=== PATIENT | female | born 1935 | race Caucasian/White ===

== ENCOUNTER 2020-04-12 10:52 | Inpatient (IN) ==
[2020-04-12] MEDS ORDERED: SODIUM CHLORIDE 0.9% 500 ML IV ONE (11:18)
[2020-04-12 11:43] LABS: Hematocrit (blood only) 37.2 % (37-47); Hemoglobin 12.2 g/dL (12.0-16.0); Immature Granulocytes # (auto) 0.06 K/uL (0.00-0.02); Immature Granulocytes % (auto) 0.7 %; Lymphocytes # (auto) 0.69 K/uL (1.2-3.4); Lymphocytes % (auto) 8.2 %; Mean Corpuscular Hgb Conc 32.8 g/dL (32-36); Mean Corpuscular Volume 91.4 fL (80-100); Mean Platelet Volume 13.5 fL (7.4-10.4); Monocytes # (auto) 0.61 K/uL (0.11-0.59); Monocytes % (auto) 7.3 %; Neutrophils # (auto) 7.02 K/uL (1.4-6.5); Neutrophils % (auto) 83.8 %; Platelet Count 165 K/uL (130-400); RDW Coefficient of Variation 13.3 % (11.5-14.5); RDW Standard Deviation 43.8 fL (36.4-46.3); Red Blood Count 4.07 M/uL (4.2-5.4); White Blood Count 8.38 K/uL (4.8-10.8)
[2020-04-12 12:00] LABS: INR 1.1 (0.9-1.1); Partial Thromboplastin Time 27.1 Seconds (21.0-31.0); Prothrombin Time 11.8 Seconds (9.0-12.0)
[2020-04-12 12:10] LABS: Albumin Level 3.2 gm/dl (3.4-5.0); BUN Creatinine Ratio 37.4 (10-20); Bilirubin Direct 0.2 mg/dl (0-0.2); Calcium 12.1 mg/dl (8.5-10.1); Creatinine Clr Calc Pharmacy 13.5 ml/min; Est GFR (African American) 23.4; Est GFR (Non-African American) 20.2; Magnesium 2.7 mg/dl (1.8-2.4); Potassium 3.4 mmol/L (3.5-5.1)
[2020-04-12 12:13] LABS: Albumin Globulin Ratio 0.7 (0.9-2); Bilirubin,Total 0.7 mg/dl (0.2-1); Globulin 4.3 gm/dl (2.5-4.0); Phosphorus 1.7 mg/dl (2.5-4.9); Thyroid Stimulating Hormone 1.08 uIu/ml (0.300-4.500); Total Protein 7.5 gm/dl (6.4-8.2); Troponin I 0.286 ng/ml (0-0.045)
--- NOTE | 2020-04-12 12:33 | CT Scan Report ---
CT OF THE ABDOMEN AND PELVIS WITHOUT CONTRAST CLINICAL HISTORY: Abdominal pain. Constipation. COMPARISON STUDY: No previous studies for comparison. TECHNIQUE: Axial images of the abdomen and pelvis were obtained without IV contrast. Images were revi ewed in the axial, sagittal, and coronal planes. Automated exposure control was utilized for the chris dy. A dose lowering technique was utilized adhering to the principles of ALARA. FINDINGS: Visualized portions of the lower chest demonstrate moderate right lower lobe consolidation. This suggests pneumonia. No pneumatosis, free air or portal venous gas is present. 1.2 cm lateral se gment hepatic lesion likely reflects a cyst. Evaluation of the abdomen and pelvis is suboptimal on th is unenhanced exam. The spleen, adrenal glands, kidneys and pancreas are unremarkable with exception of a 2 mm nonobstructing right renal calculus and a 3 mm nonobstructing left renal calculus. There ar e no ureteral calculi. There is no hydronephrosis. There are are bilateral parapelvic cysts. No bilia ry or pancreatic ductal dilatation is present. The appendix is normal. There is no evidence for a bow el obstruction. Extensive colonic diverticulosis is noted without evidence for acute diverticulitis. Large amount of stool within the rectum is noted. No lymphadenopathy or ascites is present. Calcified uterine fibroids are noted. Grade I/II anterolisthesis of L5 on S1 due to L5 pars defects is noted. Old T11 compression fracture is present. IMPRESSION: 1. Large amount of stool within the rectum. No evidence for a bowel obstruction. 2. Moderate right lower lobe consolidation suggestive of pneumonia. 3. Small bilateral renal calculi. 4. Colonic diverticulosis without evidence for acute diverticulitis. ACT 112: Negative or not required by law. Electronically signed by: Markus Sanchez M.D. 04/12/2020 12:06 PM
--- NOTE | 2020-04-12 12:57 | Emergency Department Note ---
Impression & Plan Hypernatremia, Acute kidney injury superimposed on chronic kidney disease, Dementia, Hypercalcemia, Hypophosphatemia ED Provider Note NAME: YVES PATTEN AGE: 84 SEX: F ARRIVES VIA: Ambulance INFORMANT: Patient, ED PROVIDER(S): Yosi Leary MD CHIEF COMPLAINT: renal failure PLAN: Disposition: Admit MEDICAL DECISION MAKING: The patient is an 84-year-old woman with a past medical history of severe dementia who presents emergency department from her assisted living facility after recently arriving [facility] for evaluation of acute renal failure with creatinine of 2 on labs drawn yesterday which is up from recent of ultimately 1.0. And hypernatremia of 140. This was all performed in the setting of the patient complaining of abdominal pain with x-rays suspicious for severe constipation. On arrival the patient is severely demented minimally verbal but moving all extremities equally. She appears clinically dry. She d oes exhibit generalized discomfort/pain throughout her entire body including her abdomen. WBC, H/H and platelets within normal limits. Chemistry without acidosis. However creatinine is 2.15 and sodium 150 with BUN/creatinine> 30 consistent with prerenal etiology. Sodium of 150 represents approximately 1.7 L free water deficit. Calcium 12.1 Of note, the patient did exhibit several episodes of a narrow complex tachyarrhythmia up to the 190s but lasting briefly, 30 seconds,. Suspect this will improve as metabolic imbalance is addressed. Chest x-ray with question of right basilar density though could be atelectasis. CT abdomen pelvis negative for acute intra-abdominal process with evidence of severe constipation and fecal impaction. Right base is better clarified suggestive of possible infiltrate. UA pending. Will defer decision for antibiotics to admitting team. Blood cultures lactate and COVID-19 PCR ordered. Case was discussed with Juan Cifuentes PAC, with Dr. Oscar Martinez hospitalist who will evaluate the patient for admission. Triage Nursing notes reviewed and agree them. Additional history obtained from [facility] [address] records Prior medical records reviewed Vital Signs: reviewed and remarkable for tachycardia Differential diagnosis: Infection, dehydration, metabolic abnormality, hypo/hyperglycemia, electrolyte disturbance, anemia, hypoxia, cardiac sources, intracerebral event, toxicologic, neurologic, as well as other pathologies. ER treatment provided: See below. Diagnostics interpreted by me: ECG 1059: Sinus tachycardia, 109 bpm, no ectopy, left axis deviation, no overt ST elevation or depression, QTC 469, QRS 76. ECG 1127: Normal sinus rhythm, 93 bpm, no ectopy, left axis deviation, T wave inversion anteriorly. No overt ST elevation or depression, QTC 452, QRS 80. Cardiac Monitoring: An order for continuous cardiac monitoring was placed and de monstrated sinus tachycardia, 109 bpm, several episodes of narrow complex tachyarrhythmia up to 190s that are nonsustained. Laboratory studies: See below Imaging studies: XR chest 1V portable HISTORY: 84 years-old Female Chest Pain acute atypical chest pain COMPARISON: CT abdomen and pelvis of same day TECHNIQUE: Portable AP view of the chest FINDINGS: Cardiac silhouette is upper limits of normal in size. Calcified plaque of the thoracic aortic arch. No pneumothorax. Consolidative opacities of the right lung base. No large pleural effusion or overt pulmonary edema. Degenerative changes of the shoulders and spine. IMPRESSION: Asymmetric right lower lobe opacities are suggestive of pneumonia versus aspiration pneumonitis. CT OF THE ABDOMEN AND PELVIS WITHOUT CONTRAST CLINICAL HISTORY: Abdominal pain. Constipation. COMPARISON STUDY: No previous studies for comparison. TECHNIQUE: Axial images of the abdomen and pelvis were obtained without IV contrast. Images were reviewed in the axial, sagittal, and coronal planes. Automated exposure control was utilized for the study. A dose lowering technique was utilized adhering to the principles of ALARA. FINDINGS: Visualized portions of the lower chest demonstrate moderate right lower lobe consolidation. This suggests pneumonia. No pneumatosis, free air or portal venous gas is present. 1.2 cm lateral segment hepatic lesion likely reflects a cyst. Evaluation of the abdomen and pelvis is suboptimal on this unenhanced exam. The spleen, adrenal glands, kidneys and pancreas are unremarkable with exception of a 2 mm nonobstructing right renal calculus and a 3 mm nonobstructing left renal calculus. There are no ureteral calculi. There is no hydronephrosis. There are are bilateral parapelvic cysts. No biliary or pancreatic ductal dilatation is present. The appendix is normal. There is no evidence for a bowel obstruction. Extensive colonic diverticulosis is noted without evidence for acute diverticulitis. Large amount of stool within the rectum is noted. No lymphadenopathy or ascites is present. Calcified uterine fibroids are noted. Grade I/II anterolisthesis of L5 on S1 due to L5 pars defects is noted. Old T11 compression fracture is present. IMPRESSION: 1. Large amount of stool within the rectum. No evidence for a bowel obstruction. 2. Moderate right lower lobe consolidation suggestive of pneumonia. 3. Small bilateral renal calculi. 4. Colonic diverticulosis without evidence for acute diverticulitis. CT head/brain wo con CLINICAL HISTORY: 84 years-old Female with confusion. Acute confusion with altered mental status TECHNIQUE: Multiple axial CT images of the head were obtained without contrast. A dose lowering technique was utilized adhering to the principles of ALARA. CT DOSE: 729.78 mGycm COMPARISON: None. FINDINGS: No acute intracranial hemorrhage, midline shift, intracranial mass, hydrocephalus, territorial ischemia or abnormal extra-axial collection. Age- related involutional changes with ex vacuo ventriculomegaly. Patchy white matter hypodensities suggest chronic microvascular ischemic disease. Cerebral vascular calcifications. The calvarium is intact. Prior bilateral lens replacement. The paranasal sinuses, mastoid air cells, and middle ear cavities are clear. IMPRESSION: No acute intracranial abnormality. Consultation(s): Case was discussed with Juan Cifuentes PAC, with Dr. Oscar Martinez hospitalist who will evaluate the patient for admission. HPI: The patient is an 84-year-old woman with a past medical history of severe dementia who presents emergency department from her assisted living facility after recently arriving [facility] for evaluation of acute renal failure with creatinine of 2 on labs drawn yesterday which is up from recent of ultimately 1.0. And hypernatremia of 140. This was all performed in the setting of the patient complaining of abdominal pain with x-rays suspicious for severe constipation. ROS: See above HPI for pertinent positives & negatives. HPI is limited secondary to dementia. PAST MEDICAL HISTORY:See Below PAST SURGICAL HISTORY:See Below FAMILY HISTORY:See Below SOCIAL HISTORY:See Below HOME MEDICATIONS:See Below ALLERGIES:See Below VITALS:See Below PHYSICAL EXAMINATION: GENERAL: Awake to voice but minimally verbal, severely demented. Ill-appearing, in no distress HENT: Normocephalic, atraumatic. Oropharynx with dry mucous membranes and otherwise unremarkable. EYES: Normal conjunctiva. Sclera non-icteric. NECK: Supple. No nuchal rigidity. FROM. No JVD. RESPIRATORY: Clear to auscultation. CARDIAC: Tachycardic rate, normal rhythm. Extremities warm and well perfused. Pulses equal. ABDOMEN: Soft, non-distended. Generalized abdominal discomfort without discrete tenderness. No rebound or guarding. No masses. RECTAL: Deferred. MUSCULOSKELETAL: Chest examination reveals no tenderness. The back is symmetrical on inspection without obvious abnormality. There is no CVA tenderness to palpation. No joint edema. LOWER EXTREMITIES: Calves are equal size bilaterally and non-tender. No edema. No discoloration. NEURO: Normal sensorium. No focal sensory or motor deficits noted. Minimal verbal. Severe dementia. SKIN: No rash or jaundice noted. ED COURSE: Critical Care: I have personally spent greater than 65 minutes of critical care time in the direct management of this patient. This includes bedside care, interpretation of diagnostic studies, and testing, discussion with consultants, patient, and family members, and other required patient management activities. This 65 minutes is in excess of all separately billable procedures. Yosi Leray MD Past Med/Surg History Medical History Acquired hypothyroidism CKD (chronic kidney disease), stage III Dementia Primary hyperparathyroidism Surgical History H/O section S/P tonsillectomy Family History Other Heart disease Social History Smoking Status: Unknown if ever smoked Second Hand Exposure: No; Do You Dip or Chew Tobacco: No; Tobacco Cessation Education Requested by Patient: No Hx Alcohol Use: No Hx Substance Use: No Preferred Language: Mexican Communication Ability: hx alzheim Beliefs That Will Affect Care: None Current Living Situation: Assisted Other Information That Helps Us Care for You: No Feels Safe at Home: Yes Safety Concerns: Feels Safe At This Time Allergies Allergies Allergy/AdvReac Type Severity Reaction Status Date / Time No Known Allergies Allergy Unverified 04/12/20 11:54 Home Meds Home Medications Medication Instructions Recorded Confirmed amlodipine 5 mg PO HS 04/12/20 04/12/20 aspirin 81 mg PO QAM 04/12/20 04/12/20 cholecalciferol (vitamin D3) 25 mcg PO QAM 04/12/20 04/12/20 [Vitamin D3] levothyroxine 50 mcg PO DAILYBB 04/12/20 04/12/20 magnesium oxide 400 mg PO QAM 04/12/20 04/12/20 memantine 10 mg PO BID 04/12/20 04/12/20 metoprolol succinate 50 mg PO HS 04/12/20 04/12/20 polyethylene glycol 3350 [Miralax] 17 g PO QAM 04/12/20 04/12/20 sennosides-docusate sodium 2 tab-cap PO BID 04/12/20 04/12/20 [Senna-S] sertraline 50 mg PO QAM 04/12/20 04/12/20 Results & Data (ED) Vital Signs Vital Signs - 24 hr 04/12/20 11:00 04/12/20 11:01 04/12/20 11:06 Temperature 36.9 C Temperature Source Oral Pulse Rate 107 H 106 H 110 H Pulse Rate from SpO2 Sensor 107 H 106 H Respiratory Rate 25 H 24 20 Blood Pressure 153/76 H 145/97 H Blood Pressure Mean 93 113 Pulse Oximetry 92 93 93 Oxygen Delivery Method Room Air Oxygen Flow Rate Sepsis Recent Fever Within 48 Hours No Sepsis New/Unexplained Change in Mental Status No Sepsis Action Taken by Nursing No Action Required 04/12/20 11:20 04/12/20 11:30 04/12/20 11:31 Temperature Temperature Source Pulse Rate 95 H 94 H Pulse Rate from SpO2 Sensor 95 H 96 H Respiratory Rate 25 H 20 Blood Pressure 164/67 H Blood Pressure Mean 86 Pulse Oximetry 93 98 99 Oxygen Delivery Method Room Air Oxygen Flow Rate 3 3 Sepsis Recent Fever Within 48 Hours Sepsis New/Unexplained Change in Mental Status Sepsis Action Taken by Nursing 04/12/20 12:00 04/12/20 12:01 04/12/20 12:30 Temperature Temperature Source Pulse Rate 94 H 93 H 93 H Pulse Rate from SpO2 Sensor 94 H 93 H 92 H Respiratory Rate 23 21 19 Blood Pressure 142/63 H 157/97 H Blood Pressure Mean 75 114 Pulse Oximetry 95 94 95 Oxygen Delivery Method Oxygen Flow Rate 3 3 3 Sepsis Recent Fever Within 48 Hours Sepsis New/Unexplained Change in Mental Status Sepsis Action Taken by Nursing 04/12/20 12:31 04/12/20 12:44 04/12/20 13:00 Temperature Temperature Source Pulse Rate 92 H 109 H Pulse Rate from SpO2 Sensor 96 H 110 H Respiratory Rate 24 27 H Blood Pressure 160/81 H 150/101 H Blood Pressure Mean 100 108 Pulse Oximetry 95 97 Oxygen Delivery Method Nasal Cannula Nasal Cannula Oxygen Flow Rate 3 2 2 Sepsis Recent Fever Within 48 Hours Sepsis New/Unexplained Change in Mental Status Sepsis Action Taken by Nursing 04/12/20 13:01 Temperature Temperature Source Pulse Rate 94 H Pulse Rate from SpO2 Sensor 95 H Respiratory Rate 17 Blood Pressure Blood Pressure Mean Pulse Oximetry 96 Oxygen Delivery Method Nasal Cannula Oxygen Flow Rate 2 Sepsis Recent Fever Within 48 Hours Sepsis New/Unexplained Change in Mental Status Sepsis Action Taken by Nursing Laboratory Data Attestation: I reviewed the patient's lab results. Result diagrams: 04/12/20 10:28 04/12/20 10:28 Lab Results 04/12/20 04/12/20 04/12/20 Range/Units 10:24 10:24 10:28 WBC 8.38 (4.8-10.8) K/uL RBC 4.07 L (4.2-5.4) M/uL Hgb 12.2 (12.0-16.0) g/dL Hct 37.2 (37-47) % MCV 91.4 (80-100) fL MCH 30.0 (25-34) pg MCHC 32.8 (32-36) g/dL RDW Std Deviation 43.8 (36.4-46.3) fL RDW Coeff of Harshad 13.3 (11.5-14.5) % Plt Count 165 (130-400) K/uL MPV 13.5 H (7.4-10.4) fL Immature Gran % (Auto) 0.7 % Neut % (Auto) 83.8 % Lymph % (Auto) 8.2 % [place] % (Auto) 7.3 % Eos % (Auto) 0.0 % Baso % (Auto) 0.0 % Neut # (Auto) 7.02 H (1.4-6.5) K/uL Lymph # (Auto) 0.69 L (1.2-3.4) K/uL [place] # (Auto) 0.61 H (0.11-0.59) K/uL Eos # (Auto) 0.00 (0-0.5) K/uL Baso # (Auto) 0.00 (0-0.2) K/uL Immature Gran # (Auto) 0.06 H (0.00-0.02) K/uL PT (9.0-12.0) Seconds INR (0.9-1.1) APTT (21.0-31.0) Seconds PTT Ratio Sodium (136-145) mmol/L Potassium (3.5-5.1) mmol/L Chloride (98-107) mmol/L Carbon Dioxide (21-32) mmol/L Anion Gap (3-11) BUN (7-18) mg/dl Creatinine (0.6-1.2) mg/dl Est Cr Clr Drug Dosing ml/min Est GFR ( Amer) Est GFR (Non-Af Amer) BUN/Creatinine Ratio (10-20) Glucose (70-99) mg/dl Calcium (8.5-10.1) mg/dl Phosphorus (2.5-4.9) mg/dl Magnesium (1.8-2.4) mg/dl Total Bilirubin (0.2-1) mg/dl Direct Bilirubin (0-0.2) mg/dl AST (15-37) U/L ALT (12-78) U/L Alkaline Phosphatase (45-117) U/L Troponin I (0-0.045) ng/ml Total Protein (6.4-8.2) gm/dl Albumin (3.4-5.0) gm/dl Globulin (2.5-4.0) gm/dl Albumin/Globulin Ratio (0.9-2) Lipase (73-393) U/L 25-OH Vitamin D Total 73.3 (30-100) ng/ml Procalcitonin 0.57 H (0-0.5) ng/ml TSH (0.300-4.500) uIu/ml COVID-19 Eval Order COVID-19 PCR (Negative) 04/12/20 04/12/20 04/12/20 Range/Units 10:28 10:28 13:25 WBC (4.8-10.8) K/uL RBC (4.2-5.4) M/uL Hgb (12.0-16.0) g/dL Hct (37-47) % MCV (80-100) fL MCH (25-34) pg MCHC (32-36) g/dL RDW Std Deviation (36.4-46.3) fL RDW Coeff of Harshad (11.5-14.5) % Plt Count (130-400) K/uL MPV (7.4-10.4) fL Immature Gran % (Auto) % Neut % (Auto) % Lymph % (Auto) % [place] % (Auto) % Eos % (Auto) % Baso % (Auto) % Neut # (Auto) (1.4-6.5) K/uL Lymph # (Auto) (1.2-3.4) K/uL [place] # (Auto) (0.11-0.59) K/uL Eos # (Auto) (0-0.5) K/uL Baso # (Auto) (0-0.2) K/uL Immature Gran # (Auto) (0.00-0.02) K/uL PT 11.8 (9.0-12.0) Seconds INR 1.1 (0.9-1.1) APTT 27.1 (21.0-31.0) Seconds PTT Ratio 1.0 Sodium 150 H (136-145) mmol/L Potassium 3.4 L (3.5-5.1) mmol/L Chloride 117 H (98-107) mmol/L Carbon Dioxide 24 (21-32) mmol/L Anion Gap 9.0 (3-11) BUN 80 H (7-18) mg/dl Creatinine 2.15 H (0.6-1.2) mg/dl Est Cr Clr Drug Dosing 13.5 ml/min Est GFR ( Amer) 23.4 Est GFR (Non-Af Amer) 20.2 BUN/Creatinine Ratio 37.4 H (10-20) Glucose 258 H (70-99) mg/dl Calcium 12.1 H* (8.5-10.1) mg/dl Phosphorus 1.7 L (2.5-4.9) mg/dl Magnesium 2.7 H (1.8-2.4) mg/dl Total Bilirubin 0.7 (0.2-1) mg/dl Direct Bilirubin 0.2 (0-0.2) mg/dl AST 31 (15-37) U/L ALT 42 (12-78) U/L Alkaline Phosphatase 129 H (45-117) U/L Troponin I 0.286 H* (0-0.045) ng/ml Total Protein 7.5 (6.4-8.2) gm/dl Albumin 3.2 L (3.4-5.0) gm/dl Globulin 4.3 H (2.5-4.0) gm/dl Albumin/Globulin Ratio 0.7 L (0.9-2) Lipase 104 (73-393) U/L 25-OH Vitamin D Total (30-100) ng/ml Procalcitonin (0-0.5) ng/ml TSH 1.080 (0.300-4.500) uIu/ml COVID-19 Eval Order Covid19 Done at [facility] COVID-19 PCR (Negative) 04/12/20 Range/Units 13:25 WBC (4.8-10.8) K/uL RBC (4.2-5.4) M/uL Hgb (12.0-16.0) g/dL Hct (37-47) % MCV (80-100) fL MCH (25-34) pg MCHC (32-36) g/dL RDW Std Deviation (36.4-46.3) fL RDW Coeff of Harshad (11.5-14.5) % Plt Count (130-400) K/uL MPV (7.4-10.4) fL Immature Gran % (Auto) % Neut % (Auto) % Lymph % (Auto) % [place] % (Auto) % Eos % (Auto) % Baso % (Auto) % Neut # (Auto) (1.4-6.5) K/uL Lymph # (Auto) (1.2-3.4) K/uL [place] # (Auto) (0.11-0.59) K/uL Eos # (Auto) (0-0.5) K/uL Baso # (Auto) (0-0.2) K/uL Immature Gran # (Auto) (0.00-0.02) K/uL PT (9.0-12.0) Seconds INR (0.9-1.1) APTT (21.0-31.0) Seconds PTT Ratio Sodium (136-145) mmol/L Potassium (3.5-5.1) mmol/L Chloride (98-107) mmol/L Carbon Dioxide (21-32) mmol/L Anion Gap (3-11) BUN (7-18) mg/dl Creatinine (0.6-1.2) mg/dl Est Cr Clr Drug Dosing ml/min Est GFR ( Amer) Est GFR (Non-Af Amer) BUN/Creatinine Ratio (10-20) Glucose (70-99) mg/dl Calcium (8.5-10.1) mg/dl Phosphorus (2.5-4.9) mg/dl Magnesium (1.8-2.4) mg/dl Total Bilirubin (0.2-1) mg/dl Direct Bilirubin (0-0.2) mg/dl AST (15-37) U/L ALT (12-78) U/L Alkaline Phosphatase (45-117) U/L Troponin I (0-0.045) ng/ml Total Protein (6.4-8.2) gm/dl Albumin (3.4-5.0) gm/dl Globulin (2.5-4.0) gm/dl Albumin/Globulin Ratio (0.9-2) Lipase (73-393) U/L 25-OH Vitamin D Total (30-100) ng/ml Procalcitonin (0-0.5) ng/ml TSH (0.300-4.500) uIu/ml COVID-19 Eval Order COVID-19 PCR NEGATIVE (Negative) Administered Medications Doxycycline Hyclate 100 mg/ (Dextrose) 110 mls @ 50 mls/hr IV Q12H RM Stop: 04/19/20 17:59 Last Admin: 04/12/20 18:16 Dose: 50 mls/hr Documented by: [id number] Cefepime HCl 2,000 mg/ Syringe 20 mls @ 5 mls/min IV Q24H RM; Protocol Stop: 04/19/20 17:29 Last Admin: 04/12/20 18:16 Dose: 5 mls/min Documented by: [id number] Multivitamins 10 ml/ Thiamine HCl 100 mg/ Folic Acid 1 mg/Sodium Chloride 1,011.2 mls @ 1,011.2 mls/hr IV .Q1H ONE Stop: 04/12/20 19:14 Last Admin: 04/12/20 18:16 Dose: 1,011.2 mls/hr Documented by: [id number] Discontinued Medications Sodium Chloride (Nss) 500 mls @ 999 mls/hr IV .Q31M ONE Stop: 04/12/20 11:48 Last Infusion: 04/12/20 12:48 Dose: 0 mls/hr Documented by: [id number] Admin: 04/12/20 11:32 Dose: 999 mls/hr Documented by: [id number] Potassium Phosphate 6 mmol/ (Sodium Chloride) 252 mls @ 252 mls/hr IV ONE ONE Stop: 04/12/20 14:44 Last Infusion: 04/12/20 15:36 Dose: 0 mls/hr Documented by: [id number] Admin: 04/12/20 14:04 Dose: 252 mls/hr Documented by: [id number] Potassium Phosphate (Potassium Phos 3 Mmol/1 Ml Infusion) 6 mmol IV NOW STA Stop: 04/12/20 13:08 Last Admin: 04/12/20 14:04 Dose: 6 mmol Documented by: [id number] Blood Pressure Blood Pressure Findings: Normal blood pressure Blood Pressure Disposition: further management by hospitalist Discharge Plan Visit Data Chief Complaint: Abnormal Labs/Diagnostic Testing ED Provider: Yosi Leary Discharge Problem: Hypernatremia, Acute kidney injury superimposed on chronic kidney disease, Dementia, Hypercalcemia, Hypophosphatemia Patient Disposition: Admitted As Inpatient Discharge Instructions Interventions: ED Discharge Assessment Last Done: 04/12/20 16:02 Discharge Problem: Dementia Qualifiers: Dementia type: unspecified type Dementia behavioral disturbance: without behavioral disturbance Qualified Code(s): F03.90 - Unspecified dementia without behavioral disturbance
[2020-04-12] MEDS ORDERED: POTASSIUM PHOS 3 MMOL/1 ML INFUSION IV STA (13:07)
--- NOTE | 2020-04-12 13:11 | XRay Report ---
XR chest 1V portable HISTORY: 84 years-old Female Chest Pain acute atypical chest pain COMPARISON: CT abdomen and pelvis of same day TECHNIQUE: Portable AP view of the chest FINDINGS: Cardiac silhouette is upper limits of normal in size. Calcified plaque of the thoracic aortic arch. N o pneumothorax. Consolidative opacities of the right lung base. No large pleural effusion or overt pu lmonary edema. Degenerative changes of the shoulders and spine. IMPRESSION: Asymmetric right lower lobe opacities are suggestive of pneumonia versus aspiration pneum onitis. ACT 112: Negative or not required by law. The above report was generated using voice recognition software. It may contain grammatical, syntax o r spelling errors. Electronically signed by: Tariq Todd M.D. 04/12/2020 12:29 PM
--- NOTE | 2020-04-12 13:14 | CT Scan Report ---
CT head/brain wo con CLINICAL HISTORY: 84 years-old Female with confusion. Acute confusion with altered mental status TECHNIQUE: Multiple axial CT images of the head were obtained without contrast. A dose lowering tech nique was utilized adhering to the principles of ALARA. CT DOSE: 729.78 mGycm COMPARISON: None. FINDINGS: No acute intracranial hemorrhage, midline shift, intracranial mass, hydrocephalus, territorial ischem ia or abnormal extra-axial collection. Age-related involutional changes with ex vacuo ventriculomegal y. Patchy white matter hypodensities suggest chronic microvascular ischemic disease. Cerebral vascula r calcifications. The calvarium is intact. Prior bilateral lens replacement. The paranasal sinuses, mastoid air cells, and middle ear cavities are clear. IMPRESSION: No acute intracranial abnormality. ACT 112: Negative or not required by law. The above report was generated using voice recognition software. It may contain grammatical, syntax o r spelling errors. Electronically signed by: Tariq Todd M.D. 04/12/2020 12:48 PM
--- NOTE | 2020-04-12 13:42 | History & Physical Report ---
Date of Service April 12, 2020 Assessment & Plan (1) Acute and chronic respiratory failure with hypoxia: Right Lower Lobe Pneumonia with Acute Respiratory Failure with Hypoxia (2) Metabolic encephalopathy: (3) UTI (urinary tract infection): (4) Dementia: (5) Constipation: (6) Primary hyperparathyroidism: (7) Hypernatremia: (8) Acute kidney injury superimposed on chronic kidney disease: (9) Hyperglycemia: (10) Acquired hypothyroidism: Assessment and plan per Dr. Moore. Please see below. History of Present Illness Chief Complaint: constipation Primary Care Provider: [facility] This is an 84yo F with a PMH of primary hyperparathyroidism, CKD III, acquired hypothyroidism, dementia, expressive aphasia, frequent falls and other medical problems listed below who was sent from [facility] for evaluation of constipation and lethargy. Patient has been constipated for the past few days, with ileus but no bowel obstruction noted on OP abdominal XR. Has also been noted to have decreased oral intake. Has seemed more lethargic, per [facility] staff. Has been starting to have small soft BMs over past day. Was sent in to ED for IV fluids and further evaluation. When evaluated in ED, history and ROS limited due to patient's dementia and expressive aphasia. Able to nod yes/no for limited ROS. Denies chest pain, SOB or abdominal pain. Afebrile, no leukocytosis. Sodium 150, creatinine 2.15 (baseline ~ mid 1s), calcium of 12.1, phosphorous 1.7, troponin 0.286, TSH normal. CT head without acute abnormalities. CXR with asymmetric right lower lobe opacities are suggestive of pneumonia versus aspiration pneumonitis. CT abd/pelvis with large amount of stool within the rectum. No evidence for a bowel obstruction. Moderate right lower lobe consolidation suggestive of pneumonia. Allergies Allergy/AdvReac Type Severity Reaction Status Date / Time No Known Allergies Allergy Unverified 04/12/20 11:54 Home Medications Home Medications Medication Instructions Recorded Confirmed Type amlodipine 5 mg PO HS 04/12/20 04/12/20 History aspirin 81 mg PO QAM 04/12/20 04/12/20 History cholecalciferol (vitamin D3) 25 mcg PO QAM 04/12/20 04/12/20 History [Vitamin D3] levothyroxine 50 mcg PO DAILYBB 04/12/20 04/12/20 History magnesium oxide 400 mg PO QAM 04/12/20 04/12/20 History memantine 10 mg PO BID 04/12/20 04/12/20 History metoprolol succinate 50 mg PO HS 04/12/20 04/12/20 History polyethylene glycol 3350 [Miralax] 17 g PO QAM 04/12/20 04/12/20 History sennosides-docusate sodium 2 tab-cap PO BID 04/12/20 04/12/20 History [Senna-S] sertraline 50 mg PO QAM 04/12/20 04/12/20 History Past Med/Surg History Medical History (Updated 04/12/20 @ 16:50 by Srinivas Moore MD) Acquired hypothyroidism CKD (chronic kidney disease), stage III Dementia Primary hyperparathyroidism Surgical History H/O section S/P tonsillectomy Family History Other Heart disease Social History Smoking Status: Unknown if ever smoked Second Hand Exposure: No; Do You Dip or Chew Tobacco: No; Tobacco Cessation Education Requested by Patient: No Hx Alcohol Use: No Hx Substance Use: No Preferred Language: Dominican Communication Ability: hx alzheim Beliefs That Will Affect Care: None Current Living Situation: Shelter Other Information That Helps Us Care for You: No Feels Safe at Home: Yes Safety Concerns: Feels Safe At This Time Review of Systems Review of Systems: At least ten systems reviewed and negative except as noted in the HPI. Physical Exam Physical Exam: Per Dr. Moore's addendum for physical exam. Results & Data Results & Data ([facility]) Vital Signs (Past 12 Hours) Vital Signs Temp Pulse Resp BP Pulse Ox 04/12/20 12:31 95 04/12/20 12:30 93 H 19 157/97 H 95 04/12/20 12:01 93 H 21 94 04/12/20 12:00 94 H 23 142/63 H 95 04/12/20 11:31 94 H 20 99 04/12/20 11:30 95 H 25 H 164/67 H 98 04/12/20 11:20 93 04/12/20 11:06 36.9 C 110 H 20 145/97 H 93 04/12/20 11:01 106 H 24 93 04/12/20 11:00 107 H 25 H 153/76 H 92 Laboratory Results Short CBC 04/12/20 04/12/20 04/12/20 Range/Units 10:28 10:28 10:28 WBC 8.38 (4.8-10.8) K/uL RBC 4.07 L (4.2-5.4) M/uL Hgb 12.2 (12.0-16.0) g/dL Hct 37.2 (37-47) % MCV 91.4 (80-100) fL MCH 30.0 (25-34) pg MCHC 32.8 (32-36) g/dL RDW Std Deviation 43.8 (36.4-46.3) fL RDW Coeff of Harshad 13.3 (11.5-14.5) % Plt Count 165 (130-400) K/uL MPV 13.5 H (7.4-10.4) fL Immature Gran % (Auto) 0.7 % Neut % (Auto) 83.8 % Lymph % (Auto) 8.2 % [place] % (Auto) 7.3 % Eos % (Auto) 0.0 % Baso % (Auto) 0.0 % Neut # (Auto) 7.02 H (1.4-6.5) K/uL Lymph # (Auto) 0.69 L (1.2-3.4) K/uL [place] # (Auto) 0.61 H (0.11-0.59) K/uL Eos # (Auto) 0.00 (0-0.5) K/uL Baso # (Auto) 0.00 (0-0.2) K/uL Immature Gran # (Auto) 0.06 H (0.00-0.02) K/uL PT 11.8 (9.0-12.0) Seconds INR 1.1 (0.9-1.1) APTT 27.1 (21.0-31.0) Seconds PTT Ratio 1.0 Sodium 150 H (136-145) mmol/L Potassium 3.4 L (3.5-5.1) mmol/L Chloride 117 H (98-107) mmol/L Carbon Dioxide 24 (21-32) mmol/L Anion Gap 9.0 (3-11) BUN 80 H (7-18) mg/dl Creatinine 2.15 H (0.6-1.2) mg/dl Est Cr Clr Drug Dosing 13.5 ml/min Est GFR ( Amer) 23.4 Est GFR (Non-Af Amer) 20.2 BUN/Creatinine Ratio 37.4 H (10-20) Glucose 258 H (70-99) mg/dl Calcium 12.1 H* (8.5-10.1) mg/dl Phosphorus 1.7 L (2.5-4.9) mg/dl Magnesium 2.7 H (1.8-2.4) mg/dl Total Bilirubin 0.7 (0.2-1) mg/dl Direct Bilirubin 0.2 (0-0.2) mg/dl AST 31 (15-37) U/L ALT 42 (12-78) U/L Alkaline Phosphatase 129 H (45-117) U/L Troponin I 0.286 H* (0-0.045) ng/ml Total Protein 7.5 (6.4-8.2) gm/dl Albumin 3.2 L (3.4-5.0) gm/dl Globulin 4.3 H (2.5-4.0) gm/dl Albumin/Globulin Ratio 0.7 L (0.9-2) Lipase 104 (73-393) U/L TSH 1.080 (0.300-4.500) uIu/ml BMP 04/12/20 10:28 Sodium 150 H Potassium 3.4 L Chloride 117 H Carbon Dioxide 24 BUN 80 H Creatinine 2.15 H Glucose 258 H Calcium 12.1 H* Cardiac Enzymes 04/12/20 Range/Units 10:28 Troponin I 0.286 H* (0-0.045) ng/ml Liver Function 04/12/20 Range/Units 10:28 Total Bilirubin 0.7 (0.2-1) mg/dl Direct Bilirubin 0.2 (0-0.2) mg/dl AST 31 (15-37) U/L ALT 42 (12-78) U/L Alkaline Phosphatase 129 H (45-117) U/L Albumin 3.2 L (3.4-5.0) gm/dl Diagnostic Findings CT head: IMPRESSION: No acute intracranial abnormality. CXR: IMPRESSION: Asymmetric right lower lobe opacities are suggestive of pneumonia versus aspiration pneumonitis. CT abd/pelvis: IMPRESSION: 1. Large amount of stool within the rectum. No evidence for a bowel obstruction. 2. Moderate right lower lobe consolidation suggestive of pneumonia. 3. Small bilateral renal calculi. 4. Colonic diverticulosis without evidence for acute diverticulitis. Code Status & VTE Plan VTE Prophylaxis Plan VTE Prophylaxis will be ordered: Yes Supervising Physician Co-Signing Physician Notes I, Dr. Srinivas Moore, have seen and examined the patient Gladys Sanchez and also discussed the plans with physician emergency room physician assistant On Physical Exam General: awake, not speaking much Heart: regular rate Lung: no audible crackles on lung exam but patient not taking deep breaths as instructed Abdomen: soft, nontender, positive bowel sounds Extremities: left leg is larger than right : vazquez Assessment and Plan Right Lower Lobe Pneumonia with Acute Respiratory Failure with Hypoxia Primary Hyperparathyroidism with Hypercalcemia Constipation from Hypercalcemia Dehydration with Acute Kidney Injury on Chronic Kidney Disease Hypernatremia Acute metabolic encephalopathy and underlying Dementia in Alzheimer's disease with depression (as per outpatient notes) Hyperglycemia History of Expressive aphasia Hypertension Acquired hypothyroidism -main issue is this patient has history of primary hyperparathyroidism and likely experiencing constipation symptoms from hypercalcemia, dehydration with acute kidney injury, acute metabolic encephalopathy and underlying dementia, also there is possible infectious etiology as cause acute metabolic encephalopathy from pneumonia -admission CXR: Asymmetric right lower lobe opacities are suggestive of pneumonia versus aspiration pneumonitis. Start empiric antibiotics as IV Cefepime and IV Doxycycline. Check procalcitonin. Give nasal cannula as needed for the hypoxia on room air (noted to be between 83 to 86% when on room air in the ED) -Elevated lactic acid of 2.6 likely from dehydration and possibly from pneumonia, IV fluids and IV antibiotics, trending the lactic acid -follow blood cultures, check urine analysis to rule out urinary tract infection -admission creatinine 2.15 compared to previous outpatient creatinines around 1.1. trend the creatinine with IV fluids -elevated troponins. Initial troponin is 0.286, trend the troponins, monitor on telemetry, obtain echocardiogram. It is possible that dehydration with acute kidney injury contributes to the elevated troponins -Hypernatremia of 150 also likely due to dehydration, expect this number to trend down with IV fluids -have reviewed outpatient 04/12/2020 notes that pt who is admitted to [facility] from [facility] due to inability to be cared for safely at [facility] has been evaluated over past several days for constipation with ileus with no obstruction noted on abdominal xray. She has been having decreased oral intake over past several days. Vital signs remained stable. Aebrile. Oral fluids have been encouraged.pt has been voiding according to staff. More lethargic. Pt has been starting to have small soft BMs over past day. -review of outpatient labs 04/04/2020 of elevated PTH of 76 pg/ml (reference range of normal is 15 to 65 pg/ml) -review of outpatient labs 09/15/2019 of low normal 25OH VITAMIN D of 31 (Recommended/Optimum: 30-50 ng/mL) -04/12/2020 admission serum Calcium of 12.1 mg/dl but the true level is somewhat higher as serum albumin mildly low as 3.2 and admission glucose of 258 -will repeat Vitamin D levels and PTH levels -in the ED patient was started on IV fluids. Will continue IV fluids and trend the serum calcium levels. [facility] does not carry Denosumab. Consideration can be given for starting bisphosphonates in the future but this may need discussion with endocrinology or nephrology and patients family given that there is risk of jaw necrosis with bisphosphonate. There is also contraindication against bisphosphonates at this time because patient hypophosphatemia with serum phosphorous of 1.7 mg/dl. Patient will need phosphorous supplementation. -patient should also get banana bag, daily thiamine and daily folic acid because of low phosphorous levels to prevent refeeding syndrome. Geodesist consult for nutritional needs. -dysphagia screening with speech and swallow evaluations -hold off home dose magnesium supplements as serum magnesium on admission are not deficient -check HbA1c. insulin sliding scale as needed. Monitor the blood sugars -bowel regimen, follow the bowel movements -continue home dose aspirin 81 mg daily and home dose amlodipine and home dose metoprolol for hypertension -continue home dose levothyroxine -continue home dose memantine and sertraline -check D-dimer, ultrasound of lower extremity to rule out DVT because left leg is larger than right leg -DVT prophylaxis will depend on imaging results -COVID 19 testing performed and is negative -case management consult / PT and OT evaluations as patient from SNF -agree with other assessment and plans as documented by physician emergency room physician assistant -My hospitalist colleague Dr. Foster will be following the patient starting on 04/13/2020
[2020-04-12] MEDS ORDERED: POTASSIUM PHOSPHATE 6 MMOL in SODIUM CHLORIDE 0.9% 250 ML IV ONE (13:45)
[2020-04-12] MEDS ORDERED: PNEUMOCOCCAL POLYSACCHARIDES 25 MCG/0.5 ML VIAL/SYR IM ONE (14:00)
[2020-04-12] MEDS ORDERED: PNEUMOCOCCAL ADMINISTRATION CHARGE ONE (14:00)
[2020-04-12 14:33] LABS: Appearance Urine Turbid (Clear); Bacteria Urine Automated 4+ (Negative); Bilirubin Urine Negative (Negative); Blood Urine 3+ (Negative); Color Urine Dark Yellow; Glucose Urine UA Negative (Negative); Ketones Urine Negative (Negative); Leukocyte Esterase Urine 3+ (Negative); Nitrite Urine Positive (Negative); Protein Urine 1+ (Negative); Specific Gravity Urine 1.022 (1.000-1.030); Urobilinogen Urine Negative (Negative); WBC Urine Automated >30 /hpf (0-5)
[2020-04-12 15:34] LABS: Cast Urine Automated 0 /lpf (0-5)
[2020-04-12 16:44] LABS: D Dimer 16020 ug/L FEU (0-500)
[2020-04-12] MEDS ORDERED: ACETAMINOPHEN 325 MG TAB PO PRN (17:06)
[2020-04-12] MEDS ORDERED: POLYETHYLENE (MIRALAX) 17 GM PACK PO PRN (17:06)
[2020-04-12] MEDS ORDERED: [UNRECOGNIZED DRUG - REMARK] PRN (17:27)
[2020-04-12] MEDS ORDERED: CEFEPIME CONSULT ACTIVE PRN (18:00)
--- NOTE | 2020-04-12 18:07 | Ultrasound Report ---
US venous doppler LE BI CLINICAL HISTORY: Leg pain and swelling. COMPARISON STUDY: No previous studies for comparison. FINDINGS: Grayscale color flow and Doppler spectral waveform analysis was performed. On the right, no thrombus is visualized within the common femoral superficial femoral or popliteal ve ins. Thrombus is identified within a posterior tibial vein. On the left, there is acute thrombus within the left common femoral vein, superficial femoral vein, p opliteal vein, and proximal calf veins. IMPRESSION: 1. Extensive acute left lower extremity DVT extending from the common femoral vein to the calf 2. Below the knee DVT on the right. ACT 112: Negative or not required by law. Electronically signed by: Femi Romo M.D. 04/12/2020 6:06 PM
[2020-04-12] MEDS ORDERED: MULTI-VITAMIN INFUSION 10 ML, THIAMINE HCL 100 MG, FOLIC ACID 1 MG in SODIUM CHLORIDE 0... IV ONE (18:15)
[2020-04-12] MEDS: CEFEPIME 2,000 MG in SYRINGE 7.5 ML IV SCH (18:16)
[2020-04-12] MEDS: DOXYCYCLINE HYCLATE 100 MG in DEXTROSE 5% 100 ML IV SCH (18:16)
[2020-04-12 18:56] LABS: Albumin Level 2.8 gm/dl (3.4-5.0); BUN Creatinine Ratio 42.2 (10-20); Calcium 11.2 mg/dl (8.5-10.1); Creatinine Clr Calc Pharmacy 17.9 ml/min; Est GFR (Non-African American) 28.4; Potassium 3.5 mmol/L (3.5-5.1)
[2020-04-12] MEDS ORDERED: HEPARIN IV BOLUS 4,000 UNITS in SYRINGE 0 ML IV ONE (19:00)
[2020-04-12] MEDS ORDERED: bisacodyL 10 MG SUPP PR PRN (19:01)
[2020-04-12] MEDS: HEPARIN SODIUM/DEXTROSE 25,000 UNITS/500 ML BAG IV SCH (19:04)
[2020-04-12 19:05] LABS: Albumin Globulin Ratio 0.7 (0.9-2); Bilirubin,Total 0.4 mg/dl (0.2-1); Globulin 4.2 gm/dl (2.5-4.0); Troponin I 0.305 ng/ml (0-0.045)
[2020-04-12] MEDS ORDERED: METOPROLOL TARTRATE 1 MG/ML VIAL IV PRN (19:05)
[2020-04-12] MEDS ORDERED: D5W AND 1/2NSS 1,000 ML IV SCH (19:15)
[2020-04-12] MEDS ORDERED: POTASSIUM CHLORIDE / WTR 10 MEQ/100 ML PLCT IV ONE (19:30)
[2020-04-12] MEDS ORDERED: METOPROLOL SUCC 50MG EXT REL TAB PO ONE (19:30)
[2020-04-12] MEDS ORDERED: AMLODIPINE BESYLATE 5 MG TAB PO SCH (21:00)
[2020-04-12] MEDS ORDERED: DOCUSATE SODIUM/SENNA 50/8.6MG TAB PO SCH (21:00)
[2020-04-13 01:24] LABS: Albumin Level 2.4 gm/dl (3.4-5.0); BUN Creatinine Ratio 42.5 (10-20); Calcium 10.6 mg/dl (8.5-10.1); Creatinine Clr Calc Pharmacy 21.5 ml/min; Est GFR (African American) 41.1; Est GFR (Non-African American) 35.5; Magnesium 2.1 mg/dl (1.8-2.4); Potassium 3.7 mmol/L (3.5-5.1)
[2020-04-13 01:29] LABS: Partial Thromboplastin Ratio 3.1
[2020-04-13 01:33] LABS: Partial Thromboplastin Time 85.5 Seconds (21.0-31.0)
[2020-04-13 01:34] LABS: Hematocrit (blood only) 30.3 % (37-47); Hemoglobin 9.9 g/dL (12.0-16.0); Mean Corpuscular Hemoglobin 30.3 pg (25-34); Mean Corpuscular Hgb Conc 32.7 g/dL (32-36); Mean Corpuscular Volume 92.7 fL (80-100); Mean Platelet Volume 12.5 fL (7.4-10.4); Platelet Count 119 K/uL (130-400); RDW Coefficient of Variation 13.3 % (11.5-14.5); RDW Standard Deviation 45.3 fL (36.4-46.3); Red Blood Count 3.27 M/uL (4.2-5.4); White Blood Count 6.08 K/uL (4.8-10.8)
[2020-04-13 01:37] LABS: Basophils # (auto) 0.01 K/uL (0-0.2); Basophils % (auto) 0.2 %; Eosinophils # (auto) 0.02 K/uL (0-0.5); Eosinophils % (auto) 0.3 %; Immature Granulocytes # (auto) 0.09 K/uL (0.00-0.02); Immature Granulocytes % (auto) 1.5 %; Lymphocytes # (auto) 1.05 K/uL (1.2-3.4); Lymphocytes % (auto) 17.3 %; Monocytes # (auto) 0.59 K/uL (0.11-0.59); Monocytes % (auto) 9.7 %; Neutrophils # (auto) 4.32 K/uL (1.4-6.5); Platelet Estimate Decreased (Normal)
[2020-04-13 01:39] LABS: Albumin Globulin Ratio 0.7 (0.9-2); Bilirubin,Total 0.4 mg/dl (0.2-1); Globulin 3.4 gm/dl (2.5-4.0); Phosphorus 1.3 mg/dl (2.5-4.9); Total Protein 5.8 gm/dl (6.4-8.2); Troponin I 0.289 ng/ml (0-0.045)
[2020-04-13] MEDS ORDERED: POTASSIUM PHOS 3 MMOL/1 ML INFUSION IV STA (01:49)
[2020-04-13] MEDS: DEXTROSE 5% 1,000 ML IV SCH ×3 (02:29→21:52)
[2020-04-13] MEDS ORDERED: POTASSIUM PHOSPHATE 30 MMOL in DEXTROSE 5% 500 ML IV ONE (02:30)
[2020-04-13] MEDS: DOXYCYCLINE HYCLATE 100 MG in DEXTROSE 5% 100 ML IV SCH (06:19)
[2020-04-13 06:42] LABS: Estimated Average Glucose 105 mg/dl; Hemoglobin A1C 5.3 % (4.5-5.6)
--- NOTE | 2020-04-13 06:47 | Electrocardiogram Report ---
Test Reason : Blood Pressure : / mmHG Vent. Rate : 109 BPM Atrial Rate : 109 BPM P-R Int : 174 ms QRS Dur : 076 ms QT Int : 348 ms P-R-T Axes : 048 -40 076 degrees QTc Int : 468 ms Sinus tachycardia Left axis deviation Low voltage QRS Inferior infarct , age undetermined Cannot rule out Anterior infarct , age undetermined Abnormal ECG No previous ECGs available Confirmed by Daniel Emanuel ([id number]) on 04/13/2020 6:46:34 AM Referred By: Confirmed By:Daniel Emanuel
--- NOTE | 2020-04-13 06:47 | Electrocardiogram Report ---
Test Reason : Blood Pressure : / mmHG Vent. Rate : 093 BPM Atrial Rate : 093 BPM P-R Int : 182 ms QRS Dur : 080 ms QT Int : 364 ms P-R-T Axes : 054 -33 081 degrees QTc Int : 452 ms Normal sinus rhythm Left axis deviation Inferior infarct (cited on or before 12-APR-2020) Cannot rule out Anterior infarct (cited on or before 12-APR-2020) Abnormal ECG When compared with ECG of 12-APR-2020 10:59, No significant change Confirmed by Daniel Emanuel ([id number]) on 04/13/2020 6:47:25 AM Referred By: Bob Romo Confirmed By:Daniel Emanuel
[2020-04-13 07:44] LABS: Partial Thromboplastin Ratio 1.9
[2020-04-13 07:48] LABS: Partial Thromboplastin Time 54.2 Seconds (21.0-31.0)
[2020-04-13 08:12] LABS: Hematocrit (blood only) 30.3 % (37-47); Hemoglobin 9.7 g/dL (12.0-16.0); Mean Corpuscular Hemoglobin 30.3 pg (25-34); Mean Corpuscular Volume 94.7 fL (80-100); Mean Platelet Volume 12.4 fL (7.4-10.4); Platelet Count 119 K/uL (130-400); RDW Coefficient of Variation 13.3 % (11.5-14.5); RDW Standard Deviation 46.2 fL (36.4-46.3); White Blood Count 5.65 K/uL (4.8-10.8)
[2020-04-13 08:34] LABS: Albumin Level 2.3 gm/dl (3.4-5.0); BUN Creatinine Ratio 39.1 (10-20); Basophils # (auto) 0.01 K/uL (0-0.2); Basophils % (auto) 0.2 %; Calcium 10.3 mg/dl (8.5-10.1); Creatinine Clr Calc Pharmacy 25.3 ml/min; Eosinophils # (auto) 0.03 K/uL (0-0.5); Eosinophils % (auto) 0.5 %; Est GFR (African American) 45.5; Est GFR (Non-African American) 39.3; Immature Granulocytes # (auto) 0.08 K/uL (0.00-0.02); Immature Granulocytes % (auto) 1.4 %; Lymphocytes # (auto) 0.99 K/uL (1.2-3.4); Lymphocytes % (auto) 17.5 %; Monocytes # (auto) 0.45 K/uL (0.11-0.59); Neutrophils # (auto) 4.09 K/uL (1.4-6.5); Neutrophils % (auto) 72.4 %; Partial Thromboplastin Ratio 1.8
[2020-04-13 08:37] LABS: Partial Thromboplastin Time 50.6 Seconds (21.0-31.0)
[2020-04-13 08:51] LABS: Albumin Globulin Ratio 0.7 (0.9-2); Bilirubin,Total 0.4 mg/dl (0.2-1); Globulin 3.5 gm/dl (2.5-4.0); Phosphorus 4.6 mg/dl (2.5-4.9); Total Protein 5.8 gm/dl (6.4-8.2); Troponin I 0.206 ng/ml (0-0.045)
[2020-04-13] MEDS ORDERED: SERTRALINE HCL 50 MG TABLET PO SCH (09:00)
--- NOTE | 2020-04-13 10:25 | Communication Note ---
Date of Service: April 13, 2020 pt admitted yesterday From [facility] with severe Sepsis-Right lower lobe pneumonia suggestive of aspiration, Dehydration, electrolyte derangement, hyponatremia, hypercalcemia, low phosphorus, low mag level Noted to have bilateral lower extremity extensive DVT, Baseline advanced dementia, minimally verbal, chronic dysphagia with aspiration, possible due to dementia On pure/nectar thick diet at correction Patient's 2 sons Landen lives 3 hrs away from [place] they drove [facility] to be at patient's bedside Due to COVID 19 pandemic they were not able to see/visit the patient for last 7 months. both of the sons mentions for the last few months, pt has been minimally communicative, unable to have a conversation over phone, unable to recognize family members . Now with Pneumonia/sepsis,acute renal failure, lower extremity DVT, overall long-term prognosis remains poor They are interested for hospice/palliative care On return back to [facility] Social service updated Referral made to hospice on return to [facility]. Patient will continue to receive treatment while in hospital for acute illness If during this hospital stay patient declines, does not respond to supportive care, Family is okay to Transition to Hospice/ palliative care while in hospital Both of the sons does not want any aggressive or invasive procedure, patient is already DNR/DNI No feeding tube, no dialysis Okay to treat with IV heparin as long as patient does not have any bleeding complications Brie Foster MD
[2020-04-13 12:45] LABS: BUN Creatinine Ratio 36.8 (10-20); Calcium 10.1 mg/dl (8.5-10.1); Creatinine Clr Calc Pharmacy 25.7 ml/min; Est GFR (African American) 46.5; Est GFR (Non-African American) 40.1; Potassium 3.7 mmol/L (3.5-5.1)
--- NOTE | 2020-04-13 13:23 | Nephrology Consultation ---
Date of Consultation April 13, 2020 Assessment & Plan (1) Hypercalcemia: Due to primary hyperparathyroidism aggravated by intravascular volume depletion in setting of inadequate water intake. Patient has severe dementia and not drinking enough. Calcium was 12 on admission but has improved to 10.3 with hydration. Review of labs in [facility] showed PTH of 76 and calcium of 12 on 04/04/2020 -Monitor calcium daily. -will consider starting patient on Sensipar if able to take p.o. -continue IV fluids (2) Acute and chronic respiratory failure with hypoxia: Continue antibiotics per primary team. Renally dose antibiotics for current GFR. (3) UTI (urinary tract infection): Patient is on antibiotics for pneumonia which should cover the E coli UTI as well. (4) Hypernatremia: Agree with the D5 water at 125 mL/hour. Sodium is down trending. Target rate of correction is 8 in 24 hours. (5) Acute kidney injury superimposed on chronic kidney disease: Patient with baseline CKD stage 3. Admission creatinine of 2 but down trending to 1.2 with IV fluids. Avoid nephrotoxins such as NSAIDs and contrast. History of Present Illness Reason for Consultation: Hypercalcemia, hypernatremia Requesting Physician: Brie Foster MD Attending Physician: Brie Fostre MD History of Present Illness This is a 84-year-old female with severe dementia, CKD stage 3 with baseline creatinine of 1.4, primary hyperparathyroidism, expressive aphasia, hypothyroidism and facility resident since 2018 due to frequent falls who was admitted on 04/12/2020 with the hypercalcemia of 12 and hyponatremia of 153. Patient is unable to give history due to severe dementia. History was obtained by talking to the son Jossue. The son reports the poor p.o. intake. Patient has been at the [facility] senior care facility the past the 8 month. They have not been able to visit the patient since October this year. Patient has progressively worsened, becoming more weak and unable to eat or communicate. Sh price was also found have bilateral DVT and now on heparin drip. She is receiving D5 water and sodium was improved to 148. Calcium was also improved to 10.3. Patient is also being treated for sepsis due to pneumonia Allergies Allergy/AdvReac Type Severity Reaction Status Date / Time No Known Allergies Allergy Unverified 04/12/20 11:54 Home Medications Home Medications Medication Instructions Recorded Confirmed Type amlodipine 5 mg PO HS 04/12/20 04/12/20 History aspirin 81 mg PO QAM 04/12/20 04/12/20 History cholecalciferol (vitamin D3) 25 mcg PO QAM 04/12/20 04/12/20 History [Vitamin D3] levothyroxine 50 mcg PO DAILYBB 04/12/20 04/12/20 History magnesium oxide 400 mg PO QAM 04/12/20 04/12/20 History memantine 10 mg PO BID 04/12/20 04/12/20 History metoprolol succinate 50 mg PO HS 04/12/20 04/12/20 History polyethylene glycol 3350 [Miralax] 17 g PO QAM 04/12/20 04/12/20 History sennosides-docusate sodium 2 tab-cap PO BID 04/12/20 04/12/20 History [Senna-S] sertraline 50 mg PO QAM 04/12/20 04/12/20 History Patient History Medical History Acquired hypothyroidism CKD (chronic kidney disease), stage III Dementia Primary hyperparathyroidism Surgical History H/O section S/P tonsillectomy Family History Other Heart disease Social History Smoking Status: Unknown if ever smoked Second Hand Exposure: No; Do You Dip or Chew Tobacco: No; Tobacco Cessation Education Requested by Patient: No Hx Alcohol Use: No Hx Substance Use: No Preferred Language: Greenlandic Communication Ability: hx alzheim Beliefs That Will Affect Care: None Current Living Situation: [facility] Other Information That Helps Us Care for You: No Feels Safe at Home: Yes Safety Concerns: Feels Safe At This Time Review of Systems Review of Systems: Unobtainable due to cognitive status Physical Exam Physical Exam: General exam: Appears comfortable, no acute distress HEENT: Pupils are equal and reactive to light Neck: No JVD, neck is supple trachea is midline Respiratory system: Clear breath sounds bilaterally. Gastrointestinal: Abdomen is soft, non distended, non tender, bowel sounds are present CVS: Regular rate and rhythm. No murmurs, rubs or gallops Musculoskeletal: No joint or muscle tenderness Extremities: Non tender, no edema, peripheral pulses are present Neuro: Patient responds minimally yes and no to questions Skin: No rashes Results & Data ([facility]) Vital Signs (Past 12 Hours) Vital Signs Temp Pulse Resp BP BP Pulse Ox 04/13/20 12:35 36.6 C 67 20 108/62 100 04/13/20 08:17 36.5 C 63 20 136/68 100 04/13/20 05:06 36.6 C 70 20 103/52 L 100 Laboratory Results 04/13/20 12:03 04/12/20 04/12/20 04/13/20 16:10 18:13 00:53 WBC RBC MCV MCH MCHC RDW Std Deviation RDW Coeff of Harshad Plt Count MPV Phosphorus 2.0 L 1.3 L* Albumin Cancelled 2.8 L 2.4 L 04/13/20 04/13/20 04/13/20 00:53 07:51 07:51 WBC 6.08 5.65 RBC 3.27 L 3.20 L MCV 92.7 94.7 MCH 30.3 30.3 MCHC 32.7 32.0 RDW Std Deviation 45.3 46.2 RDW Coeff of Harshad 13.3 13.3 Plt Count 119 L 119 L MPV 12.5 H 12.4 H Phosphorus 4.6 D Albumin 2.3 L
--- NOTE | 2020-04-13 15:52 | Hospitalist Progress Note ---
Date of Service April 13, 2020 Assessment & Plan (1) Severe sepsis: Patient meets criteria for sepsis on admission, admitted with hypotension, tachycardia elevated lactic acid, acute renal failure severe dehydration Source of infection, right lower lobe infiltrate/pneumonia/aspiration pne umonitis and UTI Patient given IV fluid resuscitation, broad-spectrum antibiotic cefepime and doxycycline Lactic acid level normalized with IV hydration, Vitals remained stable (2) Acute and chronic respiratory failure with hypoxia: Due to right Lower Lobe Pneumonia /aspiration pneumonitis Respiratory status improved, In room air Antibiotic as above (3) Metabolic encephalopathy: Admitted with decreased responsiveness worsening mental status, lethargy due to infection electrolyte imbalance, dehydration Baseline dementia Mental status improved, as patient able to open eyes to voice, At baseline patient is minimally communicative (4) UTI (urinary tract infection): Urine culture: E. coli, patient is already on cefepime (5) Dementia: Baseline advanced dementia with progressive dysphagia Per patient's lower last several months gradual cognitive decline noted, patient was not able to recognize family members, unable to have a conversation over phone (6) Constipation: Due to electrolyte imbalance, hypercalcemia (7) Primary hyperparathyroidism: Primary hyperparathyroidism Labs in [facility] showed PTH of 76 and calcium of 12 on 04/04/2020 With severe dehydration due to poor p.o. intake, intravascular volume depletion in the setting of infection, sepsis Appreciate input from nephrology Calcium level gradually improved to 10 with IV hydration Continue IV fluids Per nephrology:onsider starting patient on Sensipar if able to take p.o. (8) Hypernatremia: To severe dehydration, poor p.o. intake, in setting of severe dementia Sodium was 150 on admission, Patient started on IV hydration, IV fluids changed to D5 water at 125 mL/h Sodium is gradually trending down, last labs shows sodium 128 Continue slow correction with a target rate of correction of 8M EQ in 24 hours Bilateral lower extremity extensive DVT Patient has been barely mobile, bed bound for past several months Extremity Doppler shows extensive DVT from common femoral vein to popliteal vein Patient is on IV heparin drip, Discussed with patient's son, there could be an component of underlying occult malignancy, Son does not want to do any invasive, or further imaging study for diagnosis, as patient is very ill, deconditioned to receive any treatment for malignancy if it is found (9) Acute kidney injury superimposed on chronic kidney disease: CKD stage III He did with acute renal failure due to dehydration, poor p.o. intake, infection Creatinine on admission was 2.2, trending down to 1.2 with IV fluids Appreciate input from nephrology Continue to monitor BMP closely Avoid nephrotoxins and NSAIDs, contrast studies Plan of care discussed with patient's 2 sons at bedside, They are aware of patient's poor prognosis Willing to pursue hospice care when patient returns to [facility] Appreciate input from case management, hospice referral at retirement placed CODE STATUS: DNR/DNI DVT prophylaxis: IV heparin This position, return back to [facility] on hospice when medically stable Admission and Anticipated Discharge Date Admission Date: April 12, 2020 Subjective Patient seen at bedside, both sons were present Opens eyes to voice briefly, unable to follow any command, Could not recognize family members Blood pressure remains borderline low, Hypoxia currently in room air, afebrile Review of Systems Review of Systems: Unobtainable due to cognitive status Physical Exam Constitutional: WD/WN, vitals as above + ill appearing and + thin; no acute distress Eyes: + anicteric sclerae ENMT: Mouth: + lip abnormality (Very dry lips) and + oral mucosal abnormality (Dry) Dry oral mucosa Neck: trachea midline, no thyromegaly Respiratory: normal respiratory effort, lungs clear to auscultation Cardiovascular: RRR, no murmur, no edema Gastrointestinal (Abdomen): Percussion/Palpation: abdomen soft; abdomen nontender Musculoskeletal: Unable to follow commands, moving all extremities Neurologic: moves all extremities; no focal motor deficits Focal neurological deficit noted Psychiatric: Patient is arousable, unable to follow any commands, not oriented to time place and person Results & Data Results & Data ([facility]) Vital Signs (Past 12 Hours) Vital Signs Temp Pulse Resp BP BP Pulse Ox 04/13/20 12:35 36.6 C 67 20 108/62 100 04/13/20 08:17 36.5 C 63 20 136/68 100 04/13/20 05:06 36.6 C 70 20 103/52 L 100 (1) Dementia Dementia behavioral disturbance: without behavioral disturbance Dementia type: unspecified type Qualified Code(s): F03.90 - Unspecified dementia without behavioral disturbance
[2020-04-13 18:01] LABS: BUN Creatinine Ratio 33.9 (10-20); Calcium 10.7 mg/dl (8.5-10.1); Est GFR (African American) 51.5; Est GFR (Non-African American) 44.4; Potassium 3.6 mmol/L (3.5-5.1)
[2020-04-13] MEDS: CEFEPIME 2,000 MG in SYRINGE 7.5 ML IV SCH (18:02)
[2020-04-13] MEDS: HEPARIN SODIUM/DEXTROSE 25,000 UNITS/500 ML BAG IV SCH (18:46)
[2020-04-13 21:01] LABS: BUN Creatinine Ratio 30.4 (10-20); Calcium 10.3 mg/dl (8.5-10.1); Creatinine Clr Calc Pharmacy 27.8 ml/min; Potassium 3.5 mmol/L (3.5-5.1)
[2020-04-14] MEDS: DEXTROSE 5% 1,000 ML IV SCH (05:17)
[2020-04-14 06:22] LABS: Partial Thromboplastin Ratio 1.4; Partial Thromboplastin Time 38.1 Seconds (21.0-31.0)
[2020-04-14 06:42] LABS: Calcium 10.5 mg/dl (8.5-10.1)
[2020-04-14 07:03] LABS: Magnesium 1.5 mg/dl (1.8-2.4); Phosphorus 2.8 mg/dl (2.5-4.9)
[2020-04-14] MEDS ORDERED: MAGNESIUM SULFATE / D5W 1 GM/100 ML BAG IV ONE (08:12)
[2020-04-14] MEDS ORDERED: HEPARIN IV BOLUS 4,000 UNITS in SYRINGE 0 ML IV ONE (08:15)
--- NOTE | 2020-04-14 08:17 | Communication Note ---
Date of Service: April 14, 2020 AM Labs reviewed : Na 141 /Cl 114 Cr normalized 1.13 patient is positive balance of 2788 ml ordered to DC IVF Mg 1.5 -1 gm IV Mg ordered with normal Phos , Ca 10.5 all electrolytes has been significantly improved repeat labs in AM nephrology following pt will be transferred to [facility] Brie Foster MD
[2020-04-14 14:39] LABS: Partial Thromboplastin Ratio > 5.0
[2020-04-14 14:46] LABS: Partial Thromboplastin Time > 139.0 Seconds (21.0-31.0)
--- NOTE | 2020-04-14 15:31 | Hospitalist Progress Note ---
Date of Service April 14, 2020 Assessment & Plan (1) Severe sepsis: Resolved, leukocytosis has resolved, vitals stable Patient met criteria for sepsis on admission, admitted with hypotension, tachycardia elevated lactic acid, acute renal failure severe dehydration Source of infection, right lower lobe infiltrate/pneumonia/aspiration pneumonitis and UTI IV fluids discontinued as lactic acid level has normalized 24 hours ago normal kidney function Urine culture: E. coli pansensitive Antibiotic changed to IV Rocephin Discharge antibiotic can be switched to p.o. Keflex for total 7 days of treatment (2) Acute and chronic respiratory failure with hypoxia: Resolved Patient remains in room air no cough no shortness of breath or wheezing difficulty Due to right Lower Lobe Pneumonia /aspiration pneumonitis Antibiotic as above (3) Metabolic encephalopathy: Admitted with decreased responsiveness worsening mental status, lethargy due to infection electrolyte imbalance, dehydration Baseline dementia/patient is minimally communicative Mental status improved, to baseline (4) UTI (urinary tract infection): Urine culture: E. coli, pansensitive Antibiotic changed to IV Rocephin Discharge antibiotic can be switched to p.o. Keflex for total 7 days of treatment (5) Dementia: Baseline advanced dementia with progressive dysphagia Per patient's family: Last several months gradual cognitive decline noted, patient was not able to recognize family members, unable to have a conversation over phone (6) Constipation: Due to electrolyte imbalance, hypercalcemia (7) Primary hyperparathyroidism: Primary hyperparathyroidism Labs in [facility] showed PTH of 76 and calcium of 12 on 04/04/2020 With severe dehydration due to poor p.o. intake, intravascular volume depletion in the setting of infection, sepsis Appreciate input from nephrology Calcium level gradually improved to 10 with IV hydration IV fluid discontinued as all electrolytes imbalance, resolved, renal function back to baseline (8) Hypernatremia: Resolved: With IV hydration Na 141 /Cl 114 Cr normalized 1.13 patient is positive balance of 2788 ml ordered to DC IVF Mg 1.5 -1 gm IV Mg ordered with normal Phos , Ca 10.5 all electrolytes has been significantly improved repeat labs in AM nephrology following Bilateral lower extremity extensive DVT Patient has been barely mobile, bed bound for past several months Extremity Doppler shows extensive DVT from common femoral vein to popliteal vein Patient is on IV heparin drip, Discussed with patient's son, there could be an component of underlying occult malignancy, Son does not want to do any invasive, or further imaging study for diagnosis, as patient is very ill, deconditioned to receive any treatment for malignancy if it is found Plan for patient to return back to daily as full as on hospice, Anticoagulation will be discontinued on discharge as care is transition to hospice/palliative (9) Acute kidney injury superimposed on chronic kidney disease: Resolved CKD stage III acute renal failure due to dehydration, poor p.o. intake, infection Creatinine on admission was 2.2, -creatinine normalized to 1.13 with IV fluids IV fluid discontinued Appreciate input from nephrology Continue to monitor BMP closely Avoid nephrotoxins and NSAIDs, contrast studies Plan of care discussed with patient's 2 sons at bedside, They are aware of patient's poor prognosis Willing to pursue hospice care when patient returns to [facility] Appreciate input from case management, hospice referral at longterm placed CODE STATUS: DNR/DNI DVT prophylaxis: IV heparin Disposition: Return back to the [place] with hospice care in next 24 to 48 hours if patient remains medically stable Admission and Anticipated Discharge Date Admission Date: April 12, 2020 Subjective Patient appears to be comfortable, clinically less dehydrated Opens eyes to voice, not average of place or person Says " yes " to every question Vitals been stable, no fever, no cough Review of Systems Review of Systems: Unobtainable due to cognitive status Physical Exam Constitutional: WD/WN, vitals as above + ill appearing and + thin; no acute distress Eyes: + anicteric sclerae ENMT: external ear and nose normal, oropharynx normal Neck: trachea midline, no thyromegaly Respiratory: normal respiratory effort, lungs clear to auscultation Cardiovascular: RRR, no murmur, no edema Gastrointestinal (Abdomen): Percussion/Palpation: abdomen soft; abdomen nontender Neurologic: moves all extremities; no focal motor deficits Advanced dementia Psychiatric: Orientation: + not oriented x 3 Advanced dementia Results & Data Results & Data ([facility]) Vital Signs (Past 12 Hours) Vital Signs Temp Pulse Pulse Resp BP Pulse Ox Pulse Ox 04/14/20 11:15 37.3 C 92 H 16 119/67 93 04/14/20 09:00 94 H 04/14/20 08:06 36.5 C 74 20 123/70 100 04/14/20 07:00 74 94 (1) Dementia Dementia behavioral disturbance: without behavioral disturbance Dementia type: unspecified type Qualified Code(s): F03.90 - Unspecified dementia without behavioral disturbance
[2020-04-14 16:27] LABS: Partial Thromboplastin Ratio 2.2
[2020-04-14 16:32] LABS: Partial Thromboplastin Time 60.5 Seconds (21.0-31.0)
[2020-04-14] MEDS ORDERED: cefTRIAXone SODIUM 2,000 MG in DEXTROSE 5% 50 ML IV SCH (18:00)
[2020-04-14 22:10] LABS: Partial Thromboplastin Ratio 2.1
[2020-04-14 22:22] LABS: Partial Thromboplastin Time 59.1 Seconds (21.0-31.0)
[2020-04-14] MEDS ORDERED: ONDANSETRON INJ 2 MG/ML 2 ML VIAL IV PRN (22:30)
--- NOTE | 2020-04-14 23:14 | Electrocardiogram Report ---
Test Reason : Blood Pressure : / mmHG Vent. Rate : 065 BPM Atrial Rate : 065 BPM P-R Int : 156 ms QRS Dur : 080 ms QT Int : 478 ms P-R-T Axes : 067 -21 025 degrees QTc Int : 497 ms Poor data quality, interpretation may be adversely affected Normal sinus rhythm Inferior infarct (cited on or before 12-APR-2020) Abnormal ECG When compared with ECG of 12-APR-2020 11:27, Nonspecific T wave abnormality, worse in Inferior leads Confirmed by Daniel Emanuel ([id number]) on 04/14/2020 11:13:42 PM Referred By: Bob Romo Confirmed By:Daniel Emanuel
[2020-04-15 04:46] LABS: Partial Thromboplastin Ratio 2.1
[2020-04-15] MEDS: HEPARIN SODIUM/DEXTROSE 25,000 UNITS/500 ML BAG IV SCH (04:46)
[2020-04-15 04:47] LABS: Partial Thromboplastin Time 57.4 Seconds (21.0-31.0)
[2020-04-15 04:48] LABS: BUN Creatinine Ratio 21.6 (10-20); Calcium 10.4 mg/dl (8.5-10.1); Magnesium 1.8 mg/dl (1.8-2.4); Phosphorus 3.5 mg/dl (2.5-4.9); Potassium 3.7 mmol/L (3.5-5.1)
[2020-04-15] MEDS ORDERED: LEVOTHYROXINE SODIUM 25 MCG in SYRINGE 0 ML IV ONE (09:00)
[2020-04-15] MEDS ORDERED: LEVOTHYROXINE SODIUM 25 MCG in SYRINGE 0 ML IV SCH (09:00)
[2020-04-15] MEDS ORDERED: bisacodyL 5 MG TABEC PO ONE (13:54)
[2020-04-15] MEDS: cephALEXin 250 MG CAP PO SCH ×2 (16:11→20:13)
[2020-04-15] MEDS ORDERED: SOD PHOSPHATE/SOD BIPHOSPHATE ENEMA 132 ML BTL PR PRN (17:46)
--- NOTE | 2020-04-15 18:00 | Hospitalist Progress Note ---
Date of Service April 15, 2020 Assessment & Plan (1) Severe sepsis: Resolved, leukocytosis has resolved, has been so stable, afebrile Patient met criteria for sepsis on admission, admitted with hypotension, tachycardia elevated lactic acid, acute renal failure severe dehydration Source of infection, right lower lobe infiltrate/pneumonia/aspiration pneumonitis and UTI IV fluids discontinued as lactic acid level has normalized 24 hours ago normal kidney function Urine culture: E. coli pansensitive Antibiotic changed to p.o. Keflex On discharge antibiotic can be switched to p.o. Keflex for total 7 days of treatment (2) Acute and chronic respiratory failure with hypoxia: Resolved Patient remains in room air no cough no shortness of breath or wheezing difficulty Due to right Lower Lobe Pneumonia /aspiration pneumonitis Antibiotic as above (3) Metabolic encephalopathy: Admitted with decreased responsiveness worsening mental status, lethargy due to infection electrolyte imbalance, dehydration Baseline dementia/patient is minimally communicative Mental status improved, to baseline Patient unable to answer question appropriately, Son given up for phone, Son confirms for past several months patient has not been able to complicate, have been repeating same phrase. (4) UTI (urinary tract infection): Urine culture: E. coli, pansensitive antibiotic switched to p.o. Keflex for total 7 days of treatment (5) Dementia: Baseline advanced dementia with progressive dysphagia Per patient's family: Last several months gradual cognitive decline noted, patient was not able to recognize family members, unable to have a conversation over phone (6) Constipation: Due to electrolyte imbalance, hypercalcemia CT abdomen pelvis shows no evidence of bowel obstruction Had small bowel movement yesterday Continue with bowel regimen (7) Primary hyperparathyroidism: Primary hyperparathyroidism Labs in [facility] showed PTH of 76 and calcium of 12 on 04/04/2020 With severe dehydration due to poor p.o. intake, intravascular volume depletion in the setting of infection, sepsis Appreciate input from nephrology Calcium level has gradually improved IV fluids discontinued Given overall clinical decline, further investigation is not ordered Family want patient to be comfortable, transitioning to hospice palliative care (8) Hypernatremia: Resolved: With IV hydration Na 141 /Cl 114 Cr normalized 1.13 Appreciate input from nephrology Bilateral lower extremity extensive DVT Patient has been barely mobile, bed bound for past several months Extremity Doppler shows extensive DVT from common femoral vein to popliteal vein Patient is on IV heparin drip, Discussed with patient's son, there could be an component of underlying occult malignancy, Son does not want to do any invasive, or further imaging study for diagnosis, as patient is very ill, deconditioned to receive any treatment for malignancy if it is found Plan for patient to return back to 1 daily as full as on hospice, Anticoagulation will be discontinued on discharge as care is transition to hospice/palliative Patient will be discharged with aspirin only Care discussed with son Flaquito Kwon understands-due to extensive bilateral lower extremity DVT, risk for pulmonary embolism, remains high At least given the circumstances, increased bleeding risk, full anticoagulation with Coumadin would not provide much benefit Agreeable to treat with aspirin only on discharge to hospice (9) Acute kidney injury superimposed on chronic kidney disease: Resolved CKD stage III acute renal failure due to dehydration, poor p.o. intake, infection Creatinine on admission was 2.2, -creatinine normalized to 1.13 IV fluid discontinued Appreciate input from nephrology They are aware of patient's poor prognosis Willing to pursue hospice care when patient returns to [facility] Appreciate input from case management, hosp[facility] referral at prison placed CODE STATUS: DNR/DNI DVT prophylaxis: IV heparin Disposition: Discharge to [facility] tomorrow with hospice care Admission and Anticipated Discharge Date Admission Date: April 12, 2020 Subjective Vitals remained stable, No change in mental status, opens eyes to voice, does not open eyes place or person When asking how she is feeling -patient nodding head "no", repeating that she does not feel well Could not tell any pain or discomfort upon asking No sign of distress, No fever Small bowel movement yesterday No nausea vomiting, abdomen soft Review of Systems Review of Systems: All systems reviewed & are unremarkable except as noted in HPI & below Physical Exam Constitutional: WD/WN, vitals as above + ill appearing and + thin; no acute distress Eyes: + anicteric sclerae ENMT: external ear and nose normal, oropharynx normal Neck: trachea midline, no thyromegaly Respiratory: normal respiratory effort, lungs clear to auscultation Cardiovascular: RRR, no murmur, no edema Gastrointestinal (Abdomen): Percussion/Palpation: abdomen soft; abdomen nontender Neurologic: moves all extremities; no focal motor deficits Psychiatric: Orientation: + not oriented x 3 Results & Data Results & Data ([facility]) Vital Signs (Past 12 Hours) Vital Signs Temp Pulse Resp BP Pulse Ox 04/15/20 15:09 36.4 C L 97 H 17 101/69 91 04/15/20 08:01 37.1 C 80 16 130/73 93 (1) Dementia Dementia behavioral disturbance: without behavioral disturbance Dementia type: unspecified type Qualified Code(s): F03.90 - Unspecified dementia without behavioral disturbance
[2020-04-15] MEDS: POLYETHYLENE (MIRALAX) 17 GM PACK PO SCH (20:13)
[2020-04-16] MEDS: cephALEXin 250 MG CAP PO SCH ×2 (08:36→13:54)
[2020-04-16] MEDS: POLYETHYLENE (MIRALAX) 17 GM PACK PO SCH ×2 (08:37→12:59)
[2020-04-16 08:51] LABS: Calcium 11.1 mg/dl (8.5-10.1); Creatinine Clr Calc Pharmacy 29.1 ml/min; Est GFR (African American) 53.2; Est GFR (Non-African American) 45.9; Partial Thromboplastin Ratio 2.1
[2020-04-16 08:52] LABS: Phosphorus 2.6 mg/dl (2.5-4.9)
[2020-04-16 08:56] LABS: Partial Thromboplastin Time 59.6 Seconds (21.0-31.0)
[2020-04-16] MEDS ORDERED: DOCUSATE SODIUM/SENNA 50/8.6MG TAB PO SCH (09:00)
[2020-04-16] MEDS ORDERED: bisacodyL 5 MG TABEC PO SCH (09:00)
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
== END 2020-04-16 16:00 | DRG 871 ==
LOC: ED 10:52 → SUATTDRO 13:28 → 2S 13:28 → 2W 04-14 09:23